=== PATIENT | female | born 1955 | race Caucasian/White ===

== ENCOUNTER 2018-07-18 14:03 | Outpatient (CLI) | payer OTHER | END 2018-07-18 14:22 | disposition home or self-care (01) | LOC: MAMO-SONO 14:03 | DX: C50.412 Malignant neoplasm of upper-outer quadrant of left female breast (principal); Z85.3 Personal history of malignant neoplasm of breast; Z16.39 Resistance to other specified antimicrobial drug ==

== ENCOUNTER 2018-08-22 16:24 | Outpatient (CLI) | payer OTHER | END 2018-08-22 16:33 | disposition home or self-care (01) | LOC: SONOGRAMA 16:24 | DX: N60.11 Diffuse cystic mastopathy of right breast (principal); N60.12 Diffuse cystic mastopathy of left breast ==